=== PATIENT | male | born 1980 | race Caucasian/White ===

== ENCOUNTER 2023-09-08 22:26 | Emergency (ER) | payer BC, SELFPAY ==
[2023-09-08 22:45] VITALS: BP 160/110
[2023-09-09 00:23] VITALS: BP 145/100
[2023-09-09 01:00] VITALS: BP 138/92
[2023-09-09 02:00] VITALS: BP 113/73
[2023-09-09] MEDS: PRED FORTE 1% EYE DROPS 2 DROP OPHTH (02:20)
[2023-09-09] MEDS: DELTASONE 50 MG PO (02:20)
--- NOTE | 2023-09-09 02:41 | ED.GENMED ---
History of Present Illness
General
Chief Complaint: Eye Problems
Source: patient
Exam Limitations: none
Time Seen by Provider: 09/09/23 01:52
Nursing documentation reviewed up to this point in time: agreed with
Travel History
Have you had any contact with someone who has COVID-19?: No
Do you have any symptoms of coronavirus? Fever > 100 degrees, chills, cough, shortness of breath, sore throat, loss of taste or smell, muscle aches, or headache?: No
History of Present Illness
History of Present Illness:
This is a 43-year-old gentleman who has history of heart and liver transplant 5 years ago. Maintained on immunosuppressants as well as low-dose prednisone daily. He also has history of insulin-dependent diabetes, hypothyroidism, hypertension.
He complains of moderately itchy right thigh that began 4 days ago. He admits to intermittently rubbing his eye due to itching. He denies pain, denies loss of vision, no headache, no fever nor chills. No history of similar episodes in the past.
He has had mild tearing and minimal crusting in the morning but no pain.
He was evaluated at urgent care yesterday and started on ofloxacin eyedrops as well as doxycycline oral tablets. Thus far no improvement in itch nor swelling of his right eye.
He denies exposure to any new household products nor exposure to animals. He denies generalized itch nor hives. No sore throat or difficulty swallowing. No cough or shortness of breath. No headache no dizziness.
Past History
Past History
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
ED Past Surgical History: Cardiac and Other (heart/liver transplant.)
Social History
Tobacco: Non-smoker
Alcohol: None
Personal:
Living: with family
Employment: Employed
Family History
Family History: Other (Noncontributory)
Phy Exam
Physical Exam
Physical Exam:
GENERAL: Alert , in no apparent distress. 43-year-old gentleman appears his stated age, bright and alert, pleasant, appears in no acute distress.
EYE: pupils equal and reactive. Extraocular muscles intact. There is significant chemosis of right eye primarily inferior aspect of the conjunctiva of right eye. There is no lid edema nor periorbital edema nor erythema. Anicteric
NECK: Supple, nontender, no meningismus, no significant adenopathy.
ENT: oral mucosa is moist. No rhinorrhea.
CARDIAC: Regular rate and rhythm. no murmur.
LUNGS: Clear breath sounds bilaterally, no acute respiratory distress, no wheezes/rales/rhonchi
ABDOMEN: Soft, nondistended, without focal tenderness, normoactive BS.
NEUROLOGICAL: Alert and oriented x3, no focal neuro deficits. Gait is bernabe and steady.
SKIN: Warm and dry, normal color, skin intact. No rash.
MUSCULOSKELETAL: No C/C/E. peripheral pulses are full and equal b/l. No palpable tenderness.
PSYCH: Normal and appropriate interaction.
Course
Orders/Labs/Results
Orders:
Orders
09/09/23 02:05
Prednisone [Deltasone] 50 mg PO NOW STA
09/09/23 04:00
Prednisolone Acetate [Pred Forte 1% Eye Drops] See Dose Instructions OPHTH Q4
Vital Signs
Initial and Last Documented VS:
Initial Vital Signs
Temp Pulse Resp BP Pulse Ox
97.8 F 108 18 160/110 96
09/08/23 22:45 09/08/23 22:45 09/08/23 22:45 09/08/23 22:45 09/08/23 22:45
Last Documented Vital Signs
Temp Pulse Resp BP Pulse Ox
97.8 F 99 19 113/73 95
09/08/23 22:45 09/09/23 02:52 09/09/23 02:52 09/09/23 02:00 09/09/23 02:30
MDM/Problems Addressed
Differential Diagnosis Includes:
Patient presents with acute allergic conjunctivitis with marked chemosis of the right eye but no evidence of bacterial infection, no lid edema nor periorbital edema. Nothing to suggest orbital nor periorbital cellulitis.
There is no evidence of global allergic reaction.
Will give a one-time dose of prednisone 50 mg and will initiate a course of topical steroids/Pred forte.
Recommend he continue ofloxacin for now but can discontinue doxycycline.
We have discussed that this additional oral dose of prednisone may raise his blood sugar temporarily and to adjust insulin accordingly.
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
Chronic conditions affecting care: DM, HTN and Immunosuppressed
*Pulse Oximetry
Patient hypoxic: no
*Critical Care Note
Total Time (30-74mins, 75-104mins- exclusive of procedures): Not Applicable
ED Attending Note
-
Portions of this chart may have been created with voice recognition software.� Occasional wrong word or��sound alike� substitutions may have occurred due to the inherent limitations of voice recognition software.
Discharge Plan
Departure
Patient Disposition: Home (Routine Discharge)
Date of Disposition: 09/09/23
Time of Disposition: 02:44
Patient with high blood pressure during this ER visit?: No
Condition: Good
Discharge Problem:
Acute allergic conjunctivitis of right eye
Instructions: Conjunctivitis (Noninfectious Pinkeye) (DC)
Prescriptions:
New
prednisolone acetate [Pred Forte] 1 % drops,suspension
1 drp ophthalmic (eye) BID Qty: 5 0RF
No Action
famotidine 20 MG tablet
20 mg PO HS
calcium carbonate-vitamin D3 1 EACH capsule
1 cap PO QPM
prednisone 5 MG tablet
5 mg PO DAILY
levothyroxine 100 MCG tablet
100 mcg PO DAILY@0700
tacrolimus 1 MG capsule
2 mg PO BID
escitalopram oxalate 10 MG tablet
10 mg PO QPM
insulin aspart U-100 [Novolog FlexPen U-100 Insulin] 300 UNITS/3 ML insulin pen
5 units SC AC
multivitamin with folic acid [Tab-A-Criss] 1 TABLET tablet
1 tab PO DAILY
tadalafil [Cialis] 5 MG tablet
5 mg PO DAILY@1200
sirolimus 1 MG tablet
2 mg PO DAILY
insulin glargine [Lantus Solostar U-100 Insulin] 300 UNITS/3 ML insulin pen
15 units SC HS
icosapent ethyl [Vascepa] 1 GM capsule
2 gm PO BID
carvedilol 25 mg tablet
25 mg PO BID
potassium chloride 10 mEq Tablet Extended Release
10 meq PO DAILY
nifedipine 30 mg tablet extended release
30 mg PO BID
acetaminophen-codeine 300-30 mg Tablet
1 tab PO BIDPRN PRN (Reason: severe pain)
Patient Comments:
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
allopurinol 100 mg Tablet
100 mg PO QPM
magnesium oxide 500 mg Tablet
500 mg PO BID
hydralazine 50 mg tablet
100 mg PO TID
rosuvastatin [Crestor] 10 mg Tablet
10 mg PO QPM
Entresto 49-51 mg tablet
1 tab PO BID
cephalexin 500 mg Capsule
500 mg PO TID Qty: 30 0RF
bumetanide 2 mg Tablet
2 mg PO DAILY Qty: 0 0RF
Referrals:
Marjorie Kong NP [Family Provider] - Call in 1-3 days for appt
Activity Restrictions/Additional Instructions:
Continue ofloxacin eyedrops as directed.
We have added Pred forte eyedrops; use 1 drop 4 times daily to right eye for 2 days then decrease to 1 drop twice daily thereafter.
Try not to rub your eye as this worsens that local inflammation.
Follow-up with your ground crewman mission support this week for recheck.
Interventions
Interventions:
*Risk Screen - Suicide Last Done: 09/08/23 22:45
*Neglect/Abuse Screening Last Done: 09/08/23 22:45
ED- Fall Risk Assessment Last Done: 09/09/23 00:24
*ED COVID-19 Vaccine History Last Done: 09/09/23 00:24
*Nursing Disposition Last Done: 09/09/23 02:54
Discharge Date and Time
Discharge Date/Time: 09/09/23 02:55
Print Language: MONGOLIAN
== END 2023-09-09 02:55 | disposition home or self-care (01) ==
LOC: EMR 22:26
PROVIDERS: EMERGENCY PHYSICIAN Emergency Medicine; FAMILY PHYSICIAN Internal Medicine
DX: H10.11 Acute atopic conjunctivitis, right eye (principal); E11.22 Type 2 diabetes mellitus with diabetic chronic kidney disease; I12.9 Hypertensive chronic kidney disease with stage 1 through stage 4 chronic kidney disease, or unspecified chronic kidney disease; N18.9 Chronic kidney disease, unspecified; I38 Endocarditis, valve unspecified; E03.9 Hypothyroidism, unspecified; D84.81 Immunodeficiency due to conditions classified elsewhere; Z79.4 Long term (current) use of insulin; Z79.60 Long term (current) use of unspecified immunomodulators and immunosuppressants; Z94.4 Liver transplant status
CPT/HCPCS: 99282

== ENCOUNTER → 2024-09-22 12:01 | Outpatient (REF) | payer BC, SELFPAY | LOC: RAD 12:01 | PROVIDERS: ATTENDING PHYSICIAN Nurse Practitioner Adult Health; FAMILY PHYSICIAN Internal Medicine | DX: M54.2 Cervicalgia (principal) | CPT/HCPCS: 72040 ==